=== PATIENT | female | born 2000 | race African-American/Black ===

== ENCOUNTER 2021-01-28 00:09 | Emergency (ER) | payer OTHER, SELFPAY ==
[2021-01-28 00:21] VITALS: BP 100/57; PULSE 65; RESP 18; TEMP 36.7; O2SAT 100
--- NOTE | 2021-01-28 00:29 | PC.NURSE ---
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 placed gauze around toes to cover until seen by erp.
--- NOTE | 2021-01-28 01:02 | ED.WOUNDLAC ---
HPI - Wound/Laceration General Chief Complaint: Wound/Laceration Stated Complaint: toe lac Time Seen by Provider: 01/28/21 00:49 History of Present Illness HPI narrative: healthy 20 yo female presents to the ED for a laceration. She was walking in the dark and accidentally kicked a picture frame that was on the ground. She sutained lacerations to the second and third toes of the right foot. Unknown tetanus status. Related Data Home Medications Medication Instructions Recorded Confirmed No Home Medications 01/28/21 Allergies Allergy/AdvReac Type Severity Reaction Status Date / Time No Known Allergies Allergy Verified 01/28/21 00:23 Review of Systems Constitutional: Constitutional: Reports no additional constitutional complaints Cardiovascular: Cardiovascular: Reports no additional cardiovascular complaints Respiratory: Respiratory: Reports no additional respiratory complaints Gastrointestinal: Gastrointestinal: Reports no additional gastrointestinal complaints Musculoskeletal: Musculoskeletal: Reports no additional musculoskeletal complaints Neurologic: Denies numbness and Denies weakness PMFSH Social History Social History Gender identity (if verbalized by the patient): Female Sexual Orientation (if Verbalized by the Patient): Straight or Heterosexual Exam Const: General: healthy appearing, no acute distress and alert Nutritional Appearance: well nourished Orientation/consciousness: patient oriented x3 HENMT: Head: normal to inspection Resp: Effort & Inspection: normal respiratory effort Cardio: Other: 2 + right DP Skin: Other: 2 cm flap laceration to lateral second toe. 1 cm superficial laceration to third toe Course Vital Signs Vital signs: Vital Signs Temperature 36.7 C 01/28/21 00:21 Pulse Rate 65 01/28/21 00:21 Respiratory Rate 18 01/28/21 00:21 Blood Pressure 100/57 L 01/28/21 00:21 Pulse Oximetry 100 01/28/21 00:21 Temperature 36.7 C 01/28/21 00:21 Pulse Rate 70 01/28/21 02:15 Respiratory Rate 14 01/28/21 02:15 Blood Pressure 114/74 01/28/21 02:15 Pulse Oximetry 99 01/28/21 02:15 Procedures Laceration Laceration 1: Site: other (toe) Side (If applicable): right Size (cm): 2 Description: flap Depth: simple, single layer Local Anesthetic: lidocaine 1% Amount of anesthesia used (mL): 1 Pre-repair: wound explored and irrigated ====== Skin Level ====== Skin layer closed with: nylon Size (cm): 5-0 Number of sutures: 4 Technique: simple, interrupted ====== Subcutaneous Layer ====== ====== Muscle Layer ====== ====== Tendon Layer ====== Laceration 2: Site: other (toe2) Side (If applicable): right Size (cm): 1 Description: linear Depth: simple, single layer Local Anesthetic: none Pre-repair: wound explored and irrigated ====== Skin Level ====== Skin layer closed with: dermabond ====== Subcutaneous Layer ====== ====== Muscle Layer ====== ====== Tendon Layer ====== Discharge Plan Discharge Clinical Impression: Laceration of toe Qualifiers: Encounter type: initial encounter Toe: lesser toe Damage to nail status: without damage Foreign body presence: without foreign body Laterality: right Qualified Code(s): S91.114A - Laceration without foreign body of right lesser toe(s) without damage to nail, initial encounter Patient Disposition: Home, Self-Care Condition: Stable Instructions: Care For Your Stitches (ED), Laceration (ED) Additional Instructions: follow-up for suture removal in 10-14 days Prescriptions: No Action No Home Medications RF: 0 Follow-up/Referrals: PHYSICIAN,HVAC INSTALLATION TECHNICIAN [Primary Care Provider] - Miguelito Moseley MD [Physician] -
[2021-01-28] MEDS: TETANUS,DIPHTHERIA,AC PERTUSSIS ADULT (0.5 ML) BOOSTRIX IM (01:50)
[2021-01-28 02:15] VITALS: BP 114/74; PULSE 70; RESP 14; O2SAT 99
== END 2021-01-28 02:16 | disposition home or self-care (01) ==
PROVIDERS: Emergency Provider Emergency Medicine
DX: S91.114A Laceration without foreign body of right lesser toe(s) without damage to nail, initial encounter (principal); Z23 Encounter for immunization; W22.8XXA Striking against or struck by other objects, initial encounter
CPT/HCPCS: 12002; 90471; 90715; 99282